=== PATIENT | male | born 1970 | race African-American/Black ===

== ENCOUNTER 2018-12-08 14:59 | Emergency (ER) | payer SELFPAY | END 2018-12-08 16:27 | disposition left against medical advice (07) | LOC: ERS 14:59 | DX: Z53.21 Procedure and treatment not carried out due to patient leaving prior to being seen by health care provider (principal) ==

== ENCOUNTER 2021-08-30 11:38 | Emergency (ER) | payer SELFPAY | END 2021-08-30 13:38 | disposition home or self-care (01) | LOC: ERS 11:38 | DX: R10.9 Unspecified abdominal pain (principal) | CPT/HCPCS: 99283 ==

== ENCOUNTER 2023-03-11 11:23 | Emergency (ER) | payer SELFPAY ==
[2023-03-11] MEDS ORDERED: Ketorolac Tromethamine 30 MG/ML VIAL ONE (12:02)
== END 2023-03-11 12:47 | disposition home or self-care (01) ==
LOC: ERS 11:23
DX: K02.9 Dental caries, unspecified (principal)
CPT/HCPCS: 96372; 99282; J1885